=== PATIENT | female | born 1930 | race Caucasian/White ===

== ENCOUNTER → 2017-06-27 | Outpatient (CLI) | payer OTHER | LOC: RAD 01:11 | DX: Z12.31 Encounter for screening mammogram for malignant neoplasm of breast (principal) ==

== ENCOUNTER → 2018-02-20 | Outpatient (CLI) | payer OTHER | LOC: RAD 08:41 | DX: S92.351D Displaced fracture of fifth metatarsal bone, right foot, subsequent encounter for fracture with routine healing (principal); X58.XXXD Exposure to other specified factors, subsequent encounter; M19.071 Primary osteoarthritis, right ankle and foot ==

== ENCOUNTER → 2018-03-21 | Outpatient (CLI) | payer OTHER | LOC: RAD 11:51 | DX: S92.354D Nondisplaced fracture of fifth metatarsal bone, right foot, subsequent encounter for fracture with routine healing (principal); M19.071 Primary osteoarthritis, right ankle and foot; M77.31 Calcaneal spur, right foot ==

== ENCOUNTER → 2018-07-30 | Outpatient (CLI) | payer OTHER | LOC: RAD 01:57 | DX: Z12.31 Encounter for screening mammogram for malignant neoplasm of breast (principal) ==

== ENCOUNTER → 2019-08-08 | Outpatient (CLI) | payer OTHER | LOC: RAD 08-01 16:20 | DX: Z12.31 Encounter for screening mammogram for malignant neoplasm of breast (principal) ==

== ENCOUNTER → 2020-03-04 | Outpatient (CLI) | payer OTHER | LOC: SJCVC 10:09 | DX: Z74.09 Other reduced mobility (principal); E78.5 Hyperlipidemia, unspecified; M19.90 Unspecified osteoarthritis, unspecified site; M85.80 Other specified disorders of bone density and structure, unspecified site; Z79.899 Other long term (current) drug therapy ==

== ENCOUNTER → 2020-03-19 | Outpatient (CLI) | payer OTHER | LOC: SJCVC 03-10 11:50 → SJCVCIMAG 09:48 → SJCVC 09:58 → SJCVCIMAG 16:02 | PROVIDERS: ATTEND Internal Medicine | DX: I08.8 Other rheumatic multiple valve diseases (principal); E78.5 Hyperlipidemia, unspecified ==

== ENCOUNTER → 2020-05-15 | Outpatient (CLI) | payer OTHER | LOC: LAB 07:11 | PROVIDERS: ATTEND Anesthesiology | DX: Z01.818 Encounter for other preprocedural examination (principal); Z11.59 Encounter for screening for other viral diseases ==